=== PATIENT | male | born 1950 | race African-American/Black ===

== ENCOUNTER 2018-09-17 16:29 | Emergency (ER) | payer MEDICARE, OTHER ==
[~2018-09-17] VITALS: Ht 185.4 cm; Wt 98.4 kg
[~2018-09-17 16:29] MED LIST: COSOPT1 DRO2 BOTH EYES; DIOVAN HCT 3201 EAC1 ORAL; FAMOTIDINE40 MG ORAL; HYDROCODON-ACE1 EA13 ORAL; LATANOPROST2.5 ML BOTH EYES; LUMIGAN1 DROP OP; NORCO 10-325 T1 EACH ORAL; NORVASC10 MG ORAL; Naprosyn PO; PRILOSEC OTC20 MG PO; UNK INHALER
--- NOTE | 2018-09-17 16:45 | NUR ---
ED Nurse Note: pt brought in by [facility] from home c/c decrease vision in left eye and headache x 2 days, pt reports he has hx glaucoma, he lost vision in right eye and now he can't see out of left eye except some light. pt also reports headache but denies weakness, denies n/v, denies cp nor sob at this time. pt AA&ox4, gcs=15, skin warm and dry, resp even and unlabored on RA, -n/v/d, vss, NSr on laboratory monitor, will cont monitor.
[2018-09-17 16:47] VITALS: BP 145/88
[2018-09-17] MEDS ORDERED: LET 3ml Soln TOPIC ONE (16:57)
[2018-09-17] MEDS ORDERED: Tetracaine 0.5% Opth 4ml Soln ONE (16:57)
[2018-09-17] MEDS ORDERED: Tetracaine 0.5% Opth 4ml Soln LEFT EYE ONE (17:00)
[2018-09-17] MEDS ORDERED: Fluorescein Strips ONE (17:05)
[2018-09-17] MEDS ORDERED: Fluorescein Strips LEFT EYE ONE (17:15)
--- NOTE | 2018-09-17 17:20 | NUR ---
ED Nurse Note: valentin BS=90
[2018-09-17 17:31] LABS: EOSINOPHILS % (AUTO) 1.2 % (0.0-3.0); HEMATOCRIT 42.2 % (42.0-52.0); HEMOGLOBIN 14.2 G/DL (14.2-18.0); MEAN CORPUSCULAR VOLUME 105 FL (80-99); MONOCYTES % (AUTO) 6.4 % (1.0-10.0); NEUTROPHILS % (AUTO) 55.4 % (45.0-75.0); PLATELET COUNT 206 K/UL (150-450); RED BLOOD COUNT 4.02 M/UL (4.70-6.10); RED CELL DISTRIBUTION WIDTH 12.9 % (11.6-14.8); WHITE BLOOD COUNT 6.1 K/UL (4.8-10.8)
--- NOTE | 2018-09-17 17:44 | NUR ---
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
[2018-09-17 18:01] LABS: APPEARANCE,URINE CLEAR; BILIRUBIN, URINE NEGATIVE (NEGATIVE); COLOR,URINE PALE YELLOW; GLUCOSE, URINE (UA) NEGATIVE (NEGATIVE); KETONES,URINE 1+ (NEGATIVE); LEUKOCYTE ESTERASE ,URINE NEGATIVE (NEGATIVE); NITRITE,URINE NEGATIVE (NEGATIVE); PH,URINE 7 (4.5-8.0); PROTEIN,URINE NEGATIVE (NEGATIVE); UROBILINOGEN,URINE NORMAL MG/DL (0.0-1.0)
[2018-09-17 18:12] LABS: ANION GAP 9 mmol/L (5-15); BLOOD UREA NITROGEN 10 mg/dL (7-18); CALCIUM 9.3 MG/DL (8.5-10.1); CARBON DIOXIDE 26 MMOL/L (21-32); CHLORIDE 100 MMOL/L (98-107); CREATININE 1.1 MG/DL (0.55-1.30); POTASSIUM 3.9 MMOL/L (3.5-5.1); SODIUM 135 MMOL/L (136-145)
[2018-09-17 18:30] LABS: ALANINE AMINOTRANSFERASE 18 U/L (12-78); ALBUMIN 3.9 G/DL (3.4-5.0); ALBUMIN/GLOBULIN RATIO 1.2 (1.0-2.7); ALKALINE PHOSPHATASE 90 U/L (46-116); ASPARTATE AMINO TRANSFERASE 19 U/L (15-37); BILIRUBIN,TOTAL 1.1 MG/DL (0.2-1.0)
[2018-09-17 18:32] LABS: BILIRUBIN,DIRECT 0.3 MG/DL (0.0-0.3)
[2018-09-17] MEDS ORDERED: Ciprofloxacin Opth Soln 2.5ml LEFT EYE ONE (18:45)
[2018-09-17] MEDS ORDERED: cefTRIAXone 1 GM in NS 55 ML IVPB ONE (18:45)
[2018-09-17 18:47] VITALS: BP 135/77
--- NOTE | 2018-09-17 18:47 | Emergency Room Report ---
History of Present Illness General Chief Complaint: Headache Source: Patient Present Illness HPI Patient is a 68-year-old male brought in by EMS after increased left-sided headache as well as left-sided eye pain. Patient had prior history of glaucoma. He reports having 2 prior surgeries on his left eye as well as 3 prior surgeries on his right eye. 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 Patient reports having significant vision loss over the past 2 days. He reports only been able to see fingers and light but not being able to see anything else. He reportedly lives alone.Patient reports having acute onset of symptoms over the past 1 day. He reports having some increased discharge of the left eye. Allergies: Coded Allergies: No Known Allergies (Unverified , 06/29/12) Patient History Past Medical History: see triage record Reviewed Nursing Documentation: PMH: Agreed; PSxH: Agreed Nursing Documentation-PMH Past Medical History: No History, Except For Hx Cardiac Problems: No - glaucoma Hx Hypertension: Yes Hx Gastrointestinal Problems: Yes - PANCREATITIS Review of Systems All Other Systems: negative except mentioned in HPI Physical Exam Vital Signs Date Time Temp Pulse Resp B/P (MAP) Pulse Ox O2 Delivery O2 Flow Rate FiO2 09/17/18 16:25 98.8 100 18 161/94 (116) 94 Room Air General Appearance: alert, GCS 15, obese, Chronically Ill Eyes: left eye EOMI, left eye abnormal pupil, left eye lid inflammation, left eye Scleral Injection; bilateral eye other - cloudy cornea, irregular pupil, discharge, ENT: uvula midline Neck: normal inspection Respiratory: normal inspection, lungs clear Cardiovascular #1: normal inspection Gastrointestinal: normal inspection, normal bowel sounds, non tender, soft Neurologic: normal inspection, alert, oriented x3, responsive Psychiatric: normal inspection, judgement/insight normal Skin: no rash Medical Decision Making Diagnostic Impression: Primary Impression: Headache Additional Impression: Unspecified purulent endophthalmitis, left eye ER Course Presented for left eye pain and vision loss. Differential diagnosis include was not limited to iritis, conjunctivitis, acute glaucoma, endophthalmitis, among others. Patient is noted to have some irregularity to his left pupil as well as normal intraocular pressures. Patient's intraocular pressure was measured at 16 and 18 and 16. Patient was noted to be completely blind in the right eye. Patient was noted to have significant loss of vision.Patient's exam is concerning for endophthalmitis given his prior previous glaucoma surgery and may require intraocular antibiotics. Patient was given IV Rocephin as well as topical eyedrops. Patient will likely be transferred for higher level of care. Patient was discussed with Dr. Velasquez who agreed to accept the patient. Labs Test 09/17/18 16:40 09/17/18 17:50 White Blood Count 6.1 K/UL (4.8-10.8) Red Blood Count 4.02 M/UL (4.70-6.10) Hemoglobin 14.2 G/DL (14.2-18.0) Hematocrit 42.2 % (42.0-52.0) Mean Corpuscular Volume 105 FL (80-99) Mean Corpuscular Hemoglobin 35.3 PG (27.0-31.0) Mean Corpuscular Hemoglobin Concent 33.6 G/DL (32.0-36.0) Red Cell Distribution Width 12.9 % (11.6-14.8) Platelet Count 206 K/UL (150-450) Mean Platelet Volume 7.0 FL (6.5-10.1) Neutrophils (%) (Auto) 55.4 % (45.0-75.0) Lymphocytes (%) (Auto) 36.0 % (20.0-45.0) Monocytes (%) (Auto) 6.4 % (1.0-10.0) Eosinophils (%) (Auto) 1.2 % (0.0-3.0) Basophils (%) (Auto) 1.0 % (0.0-2.0) Erythrocyte Sedimentation Rate 8 MM/HR (0-20) Prothrombin Time 10.8 SEC (9.30-11.50) Prothromb Time International Ratio 1.0 (0.9-1.1) Activated Partial Thromboplast Time 30 SEC (23-33) Urine Color Pale yellow Urine Appearance Clear Urine pH 7 (4.5-8.0) Urine Specific [place] 1.010 (1.005-1.035) Urine Protein Negative (NEGATIVE) Urine Glucose (UA) Negative (NEGATIVE) Urine Ketones 1+ (NEGATIVE) Urine Blood Negative (NEGATIVE) Urine Nitrite Negative (NEGATIVE) Urine Bilirubin Negative (NEGATIVE) Urine Urobilinogen Normal MG/DL (0.0-1.0) Urine Leukocyte Esterase Negative (NEGATIVE) Urine RBC 0 /HPF (0 - 0) Urine WBC 0 /HPF (0 - 0) Urine Squamous Epithelial Cells None /LPF (NONE/OCC) Urine Bacteria None /HPF (NONE) Sodium Level 135 MMOL/L (136-145) Potassium Level 3.9 MMOL/L (3.5-5.1) Chloride Level 100 MMOL/L (98-107) Carbon Dioxide Level 26 MMOL/L (21-32) Anion Gap 9 mmol/L (5-15) Blood Urea Nitrogen 10 mg/dL (7-18) Creatinine 1.1 MG/DL (0.55-1.30) Estimat Glomerular Filtration Rate > 60 mL/min (>60) Glucose Level 91 MG/DL (74-106) Calcium Level 9.3 MG/DL (8.5-10.1) Total Bilirubin 1.1 MG/DL (0.2-1.0) Direct Bilirubin 0.3 MG/DL (0.0-0.3) Aspartate Amino Transf (AST/SGOT) 19 U/L (15-37) Alanine Aminotransferase (ALT/SGPT) 18 U/L (12-78) Alkaline Phosphatase 90 U/L (46-116) Troponin I 0.024 ng/mL (0.000-0.056) Pro-B-Type Natriuretic Peptide 32 pg/mL (0-125) Total Protein 7.1 G/DL (6.4-8.2) Albumin 3.9 G/DL (3.4-5.0) Globulin 3.2 g/dL Albumin/Globulin Ratio 1.2 (1.0-2.7) Lipase 91 U/L (73-393) Last Vital Signs Date Time Temp Pulse Resp B/P (MAP) Pulse Ox O2 Delivery O2 Flow Rate FiO2 09/17/18 16:47 98.8 94 18 145/88 98 Room Air Status: improved Disposition: XFER SHT-TRM HOSP Condition: Stable Referrals: NON PHYSICIAN (PCP) Yoshi Jama MD Sep 17, 2018 18:47
--- NOTE | 2018-09-17 18:53 | NUR ---
ED Nurse Note: Pt c/o headache, 12/28, radiating to neck, ERMD notified regarding pt's pain. pt states he wants to eat, per ERMD order, keep pt NPO at this time.
[2018-09-17] MEDS ORDERED: Morphine Sulfate 4mg/ml Inj (IV USE ONLY) IVP ONE (19:00)
--- NOTE | 2018-09-17 19:05 | NUR ---
ED Nurse Note: ERMD notified regarding unable to do visual acuity, pt reports he cannot see anything, he can't see the wall, only see some lights and shadows.
--- NOTE | 2018-09-17 19:08 | NUR ---
ED Nurse Note: receiving nurse notified regarding visual acuity test and NPO status.
--- NOTE | 2018-09-17 19:08 | NUR ---
HAND-OFF: Report given to DWAIN Abdullahi and endorsed care, pt vss, resp even and unlabored on RA, no visual changes at this time, NSR on equipment monitor phototypesetting, safety precautions in place.
--- NOTE | 2018-09-17 19:09 | NUR ---
ED Nurse Note: pt calm, cooperative, pt shows no acute s/s of distress. pt given medication for pain. pt states he cannot see in the left eye, ermd aware. visual acuity not needed at this time. bed at lowest position x 2 side rails. vss. will continue monitor.
[2018-09-17 19:23] VITALS: BP 164/85
--- NOTE | 2018-09-17 20:34 | NUR ---
Judi called from [facility]- speaking with .
--- NOTE | 2018-09-17 20:59 | NUR ---
Judi from [facility] called-patient accepted to go to [facility] Accepting is , Call report:[phone] ETA-TBA
--- NOTE | 2018-09-17 21:11 | NUR ---
ED Nurse Note: amarjit noguera (emergency contact) - [phone]
--- NOTE | 2018-09-17 21:23 | NUR ---
ED Nurse Note: telephone endorsement given to rory dean from [facility] for continuity of care
[2018-09-17 21:30] VITALS: BP 159/77
[2018-09-17] MEDS ORDERED: Morphine Sulfate 2mg/ml Inj(IV/IM USE ONLY) IVP ONE (21:30)
[2018-09-17] MEDS ORDERED: Morphine Sulfate 4mg/ml Inj (IV USE ONLY) ONE (21:31)
[2018-09-17 23:04] VITALS: BP 159/90
--- NOTE | 2018-09-17 23:05 | NUR ---
ED Nurse Note: pt currently sleeping in bed, pt shows no acute s/s of distress. vss. bed placed at lowest position, x 2 side rails.
[2018-09-18 01:01] VITALS: BP 149/81
--- NOTE | 2018-09-18 01:01 | NUR ---
ED Nurse Note: [facility] at bedside. pt is aox4, on room air, skin intact, no acute signs of distress. pt vss. all belongings given to [facility]. pt packet given to [facility]. Addendum: 09/18/18 at 0106 by PDELEON ED Nurse Note: [facility] [address] at bedside. pt is aox4, on room air, skin intact, no acute signs of distress. pt vss. all pt belongings given to [facility]. pt packet given to [facility]. pt has departed.
--- NOTE | 2018-09-18 08:43 | Diagnostic Imaging Report ---
Indications: Headache, decreased vision in left eye, history of right eye blindness Technique: Spiral acquisitions obtained through the brain. Angled axial and coronal 5 x 5 mm slices were reconstructed. Total dose length product 1400.72 mGycm. CTDI vol(s) 70.38 mGy. Dose reduction achieved using automated exposure control Comparison: None. Findings: There is increased attenuation of the right optic globe, consistent with prior vitreous hemorrhage. There is evidence of calcification of the right lens. There is age-related enlargement of the ventricles and extra axial CSF spaces. There is periventricular deep white matter low-attenuation, consistent with chronic ischemic change. Focal areas of encephalomalacia are seen in the parasagittal frontal lobe bilaterally. No acute intracranial hemorrhage or edema, mass effect, nor midline shift. Intact calvarium. The mastoids are clear. The sinuses are clear. Impression: Negative for acute intracranial bleed or mass effect Chronic and age-related changes, as described Evidence of bilateral frontal encephalomalacia, consistent with prior insult, possibly ischemic or traumatic Evidence of prior right vitreous hemorrhage This agrees with the preliminary interpretation provided overnight by Dr. Danielson The CT scanner at [facility] is accredited by the [employer] and the scans are performed using protocols designed to limit radiation exposure to as low as reasonably achievable to attain images of sufficient resolution adequate for diagnostic evaluation.
== END 2018-09-18 01:01 | disposition short-term general hospital (02) ==
LOC: EDBD 16:29 → EMR 17:02
DX: R51 Headache (principal); H44.002 Unspecified purulent endophthalmitis, left eye; H54.61 Unqualified visual loss, right eye, normal vision left eye; I10 Essential (primary) hypertension
CPT/HCPCS: 36415; 70450; 80053; 81001; 82248; 83690; 83880; 84484; 85025; 85610; 85651; 85730; 96365; 96375; 96376; 99284; J0696; J2270